=== PATIENT | male | born 1975 | race Caucasian/White ===

== ENCOUNTER 2017-12-18 14:12 | Emergency (ER) | payer BC ==
--- NOTE | 2017-12-18 14:32 | EDPHYS ---
Physician Documentation [facility] Name: Sunny Branham Age: 42 yrs Sex: Male : 1975 Arrival Date: 12/18/2017 Time: 14:14 Bed 17 Private MD: Mian Vivas V ED Physician Stone Zamarripa HPI: 12/18 14:28 This 42 yrs old Male presents to ER via Ambulatory with complaints of Back kb Pain. 14:28 The patient presents with pain that is acute, with no known mechanism of injury. The kb symptoms are located in the right scapular area. Onset: The symptoms/episode began/occurred 12 day(s) ago. The pain radiates to the right arm and neck. Associated signs and symptoms: The patient has no apparent associated signs or symptoms. The problem was sustained from unknown cause. Modifying factors: The patient symptoms are alleviated by nothing, the patient symptoms are aggravated by any movement. Severity of symptoms: At their worst the symptoms were moderate, in the emergency department the symptoms are unchanged. The patient has not experienced similar symptoms in the past. The patient has been recently seen at an urgent care, last week, for similar complaints, given steroids and muscle relaxant. Pt reports he has a pinched nerve. Was seen at Urgent Care and given steroids and muscle relaxant ("[id number]"). States he needs something for pain so he can sleep at night. Also reports the muscle relaxant has not helped at all. States his back doctor normally gives zanaflex. . Historical: - Allergies: 14:22 No Known Allergies; sv - Home Meds: 14:22 None [Active]; sv - PMHx: 14:22 None; sv - PSHx: 14:22 back; sv - Immunization history:: Flu vaccine is not up to date. - Social history:: Smoking status: Patient/guardian denies using tobacco, Patient/guardian denies using alcohol. - Ebola Screening: : No symptoms or risks identified at this time. ROS: 14:31 Constitutional: Negative for fever, chills, and weight loss, Cardiovascular: Negative kb for chest pain, palpitations, and edema, Respiratory: Negative for shortness of breath, cough, wheezing, and pleuritic chest pain, Abdomen/GI: Negative for abdominal pain, nausea, vomiting, diarrhea, and constipation, : Negative for injury, bleeding, discharge, and swelling, MS/Extremity: Negative for injury and deformity, Skin: Negative for injury, rash, and discoloration, Neuro: Negative for headache, weakness, numbness, tingling, and seizure. 14:31 Back: Positive for pain at rest, pain with movement, of the right scapular area. Exam: 14:31 Constitutional: This is a well developed, well nourished patient who is awake, alert, kb and in no acute distress. Head/Face: Normocephalic, atraumatic. Chest/axilla: Normal chest wall appearance and motion. Nontender with no deformity. No lesions are appreciated. Cardiovascular: Regular rate and rhythm with a normal S1 and S2. No gallops, murmurs, or rubs. Normal PMI, no JVD. No pulse deficits. Respiratory: Lungs have equal breath sounds bilaterally, clear to auscultation and percussion. No rales, rhonchi or wheezes noted. No increased work of breathing, no retractions or nasal flaring. Abdomen/GI: Soft, non-tender, with normal bowel sounds. No distension or tympany. No guarding or rebound. No evidence of tenderness throughout. Back: No spinal tenderness. No costovertebral tenderness. Full range of motion. Skin: Warm, dry with normal turgor. Normal color with no rashes, no lesions, and no evidence of cellulitis. MS/ Extremity: Pulses equal, no cyanosis. Neurovascular intact. Full, normal range of motion. Neuro: Awake and alert, GCS 15, oriented to person, place, time, and situation. Cranial nerves II-XII grossly intact. Motor strength 5/5 in all extremities. Sensory grossly intact. Cerebellar exam normal. Normal gait. Vital Signs: 14:15 BP 132 / 91; Pulse 71; Resp 16; Temp 97.7; Pulse Ox 98% ; Weight 99.79 kg; Height 6 ft. sv 0 in. (182.88 cm); Pain 8/10; 14:15 Body Mass Index 29.84 (99.79 kg, 182.88 cm) sv MDM: 14:21 Patient medically screened. kb 14:27 Data reviewed: vital signs, nurses notes. Data interpreted: Pulse oximetry: on room air kb is 98 %. Interpretation: normal. Counseling: I had a detailed discussion with the patient and/or guardian regarding: the historical points, exam findings, and any diagnostic results supporting the discharge/admit diagnosis, the need for outpatient follow up, a family practitioner, to return to the emergency department if symptoms worsen or persist or if there are any questions or concerns that arise at home. ED course: Pt has appt scheduled with his "back doctor". Administered Medications: No medications were administered Disposition: 12/19 06:51 Co-signature as Attending Physician, Stone Zamarripa MD I agree with the assessment and radha plan of care. Disposition: 12/18/17 14:32 Discharged to Home. Impression: Radiculopathy, cervicothoracic region. - Condition is Stable. - Discharge Instructions: Cervical Radiculopathy, [id number]. - Prescriptions for Zanaflex 4 mg Oral Tablet - take 1 tablet by ORAL route every 8 hours As needed; 21 tablet. Tramadol 50 mg Oral Tablet - take 1 tablet by ORAL route every 8 hours as needed; 12 tablet. - Medication Reconciliation Form, Thank You Letter, Antibiotic Education, Prescription Opioid Use form. - Follow up: Emergency Department; When: As needed; Reason: Worsening of condition. Follow up: Private Physician; When: 2 - 3 days; Reason: Recheck today's complaints, Continuance of care, Re-evaluation by your physician. Signatures: Rosemary Stock FNP-C FNP-Mamta Grace, RN Stone Dahl MD MD cha Reaves, Karey, RN RN kr2 Corrections: (The following items were deleted from the chart) 12/18 14:43 14:32 12/18/2017 14:32 Discharged to Home. Impression: Radiculopathy, cervicothoracic kr2 region. Condition is Stable. Forms are Medication Reconciliation Form, Thank You Letter, Antibiotic Education, Prescription Opioid Use. Follow up: Emergency Department; When: As needed; Reason: Worsening of condition. Follow up: Private Physician; When: 2 - 3 days; Reason: Recheck today's complaints, Continuance of care, Re-evaluation by your physician. kb
--- NOTE | 2017-12-18 14:32 | ER ---
Nurse's Notes [facility] Name: Sunny Branham Age: 42 yrs Sex: Male : 1975 Arrival Date: 12/18/2017 Time: 14:14 Bed 17 Private MD: Mian Vivas V Diagnosis: Radiculopathy, cervicothoracic region Presentation: 12/18 14:15 Presenting complaint: Patient states: right upper back/neck/shoulder/bicep pain started sv 12 days ago. Was seen at an Urgent Care and sent home with muscle relaxers on Saturday and has used a 30 day supply up. Transition of care: patient was not received from another setting of care. Onset of symptoms was December 06, 2017. Care prior to arrival: None. 14:15 Method Of Arrival: Ambulatory sv 14:15 Acuity: ANUSHKA 4 sv 14:20 Risk Assessment: Do you want to hurt yourself or someone else? Patient reports no kr2 desire to harm self or others. Initial Sepsis Screen: Does the patient meet any 2 criteria? No. Patient's initial sepsis screen is negative. Does the patient have a suspected source of infection? No. Patient's initial sepsis screen is negative. Triage Assessment: 14:22 General: Appears in no apparent distress. uncomfortable, Behavior is calm, cooperative, sv appropriate for age. Pain: Complains of pain in right trapezius, right scapular area, anterior aspect of left shoulder, left bicep and right posterior aspect of neck Pain currently is 8 out of 10 on a pain scale. Neuro: Level of Consciousness is awake, alert, obeys commands, Oriented to person, place, time, situation, Moves all extremities. Full function. Respiratory: Respiratory effort is even, unlabored, Respiratory pattern is regular, symmetrical. Historical: - Allergies: 14:22 No Known Allergies; sv - Home Meds: 14:22 None [Active]; sv - PMHx: 14:22 None; sv - PSHx: 14:22 back; sv - Immunization history:: Flu vaccine is not up to date. - Social history:: Smoking status: Patient/guardian denies using tobacco, Patient/guardian denies using alcohol. - Ebola Screening: : No symptoms or risks identified at this time. Screenin:20 Abuse screen: Denies threats or abuse. Denies injuries from another. Nutritional kr2 screening: No deficits noted. Tuberculosis screening: No symptoms or risk factors identified. Fall Risk None identified. Assessment: 14:20 General: Appears in no apparent distress. uncomfortable, well groomed, well developed, kr2 well nourished, Behavior is calm, cooperative, appropriate for age. Pain: Complains of pain in neck Pain radiates to right shoulder, right bicep and right upper back Pain currently is 8 out of 10 on a pain scale. Quality of pain is described as aching, Is continuous, Alleviated by nothing. Neuro: Level of Consciousness is awake, alert, obeys commands, Oriented to person, place, time, situation. Neuro: Education Site Manager are equal bilaterally Intact. Cardiovascular: Capillary refill < 3 seconds in bilateral fingers Patient's skin is warm and dry. Respiratory: Airway is patent Respiratory effort is even, unlabored, Respiratory pattern is regular, symmetrical. GI: Abdomen is flat, non-distended. Derm: Skin is intact, is healthy with good turgor, Skin is pink, warm \T\ dry. Musculoskeletal: Circulation, motion, and sensation intact. Vital Signs: 14:15 BP 132 / 91; Pulse 71; Resp 16; Temp 97.7; Pulse Ox 98% ; Weight 99.79 kg; Height 6 ft. sv 0 in. (182.88 cm); Pain 8/10; 14:15 Body Mass Index 29.84 (99.79 kg, 182.88 cm) sv ED Course: 14:14 Patient arrived in ED. mr 14:15 Mian Vivas MD is Private Physician. mr 14:15 Arm band placed on Patient placed in an exam room, on a stretcher, on pulse oximetry. sv 14:20 Patient has correct armband on for positive identification. Bed in low position. Call kr2 light in reach. Side rails up X 1. Pulse ox on. NIBP on. Door closed. Warm blanket given. Head of bed elevated. 14:21 [facility] kb 14:21 Stone Zamarripa MD is Attending Physician. kb 14:21 Triage completed. sv 14:40 No provider procedures requiring assistance completed. Patient did not have IV access kr2 during this emergency room visit. 14:43 Berenice Berger RN is Primary Nurse. kr2 Administered Medications: No medications were administered Outcome: 14:32 Discharge ordered by . kb 14:40 Discharged to home ambulatory. kr2 14:40 Condition: good 14:40 Discharge instructions given to patient, Instructed on discharge instructions, follow up and referral plans. medication usage, Demonstrated understanding of instructions, follow-up care, medications, Prescriptions given X 2. 14:43 Patient left the ED. kr2 Signatures: Rosemary Stock, MANIFOLD BUILDER-C MANIFOLD BUILDER-Mamta Grace RN RN sv Ashleigh Chung Berenice Berger RN RN kr2 Corrections: (The following items were deleted from the chart) 15:40 14:20 Pain: Complains of pain in neck Pain radiates to right posterior aspect of neck kr2 and right arm Pain currently is 8 out of 10 on a pain scale. Quality of pain is described as aching, Is continuous, Alleviated by nothing. kr2 15:43 15:41 Condition: good kr2 kr2 15:43 15:41 Discharged to home ambulatory, kr2 kr2 15:43 15:41 Discharge instructions given to patient, Instructed on discharge instructions, kr2 follow up and referral plans. medication usage, Demonstrated understanding of instructions, follow-up care, medications, Prescriptions given X 2, kr2
== END 2017-12-18 14:43 | disposition home or self-care (01) ==
LOC: ER 14:12
DX: M54.13 Radiculopathy, cervicothoracic region (principal)
CPT/HCPCS: 99283

== ENCOUNTER 2023-06-05 12:50 | Emergency (ER) | payer OTHER ==
[2023-06-05 14:07] LABS: SARS-CoV-2 Antigen CONTROL BLUE LINE VIS/BG OK; SARS-CoV-2 Antigen Rapid Res Negative (Negative)
--- NOTE | 2023-06-05 14:11 | RAD REPORT ---
EXAM DESCRIPTION: RAD - Chest Single View - 06/05/2023 1:46 pm CLINICAL HISTORY: COUGH Chest pain. COMPARISON: No comparisons FINDINGS: Portable technique limits examination quality. Peribronchial cuffing is present, greater on the right, suggests bronchitis or reactive airway diseas e. No consolidation seen to indicate bacterial pneumonia. The heart is normal in size. No displaced f ractures.
--- NOTE | 2023-06-05 14:22 | EDPHYS ---
Physician Documentation [facility] Name: Sunny Branham Age: 48 yrs Sex: Male : 1975 Arrival Date: 06/05/2023 Time: 12:50 Bed 9 Private MD: ED Physician Garry Garcia HPI: 06/04 13:45 This 48 yrs old Male presents to ER via Ambulatory with complaints of Flu Symptoms. sp3 13:45 48-year-old male with no significant past medical history presents with 3-day history sp3 of cough, congestion, body aches, subjective fever and mild headache. Possible sick contacts noted. Patient denies any chest pain, shortness of breath, abdominal pain, vomiting, diarrhea, rash, trauma, travel, or any other signs or symptoms on ROS at this time.. Historical: - Allergies: 12:58 No Known Allergies; ko1 - Home Meds: 12:58 None [Active]; ko1 - PMHx: 12:58 None; ko1 - PSHx: 12:58 None; ko1 - Immunization history:: Adult Immunizations up to date, Client reports receiving the 1st dose of the Covid vaccine, Client reports receiving the Reginaldo \T\ Reginaldo single-dose vaccine. Flu vaccine is not up to date. It has been more than one year since last vaccine. - Infectious Disease History:: Denies. - Social history:: Smoking status: Patient denies any tobacco usage or history of. ROS: 13:45 Eyes: Negative for injury, pain, redness, and discharge, Neck: Negative for injury, sp3 pain, and swelling, Cardiovascular: Negative for chest pain, palpitations, and edema, Abdomen/GI: Negative for abdominal pain, nausea, vomiting, diarrhea, and constipation, Back: Negative for injury and pain, MS/Extremity: Negative for injury and deformity, Skin: Negative for injury, rash, and discoloration, Neuro: Negative for headache, weakness, numbness, tingling, and seizure, Psych: Negative for depression, anxiety, suicide ideation, homicidal ideation, and hallucinations, Allergy/Immunology: Negative for hives, rash, and allergies, Endocrine: Negative for neck swelling, polydipsia, polyuria, polyphagia, and marked weight changes, Hematologic/Lymphatic: Negative for swollen nodes, abnormal bleeding, and unusual bruising, 13:45 All other systems are negative, Exam: 13:45 Constitutional: This is a well developed, well nourished patient who is awake, alert, sp3 and in no acute distress. Head/Face: Normocephalic, atraumatic. Eyes: Pupils equal round and reactive to light, extra-ocular motions intact. Lids and lashes normal. Conjunctiva and sclera are non-icteric and not injected. Cornea within normal limits. Periorbital areas with no swelling, redness, or edema. Neck: Trachea midline, no thyromegaly or masses palpated, and no cervical lymphadenopathy. Supple, full range of motion without nuchal rigidity, or vertebral point tenderness. No Meningismus. Chest/axilla: Normal chest wall appearance and motion. Nontender with no deformity. No lesions are appreciated. Cardiovascular: Regular rate and rhythm with a normal S1 and S2. No gallops, murmurs, or rubs. Normal PMI, no JVD. No pulse deficits. Abdomen/GI: Soft, non-tender, with normal bowel sounds. No distension or tympany. No guarding or rebound. No evidence of tenderness throughout. Back: No spinal tenderness. No costovertebral tenderness. Full range of motion. Skin: Warm, dry with normal turgor. Normal color with no rashes, no lesions, and no evidence of cellulitis. MS/ Extremity: Pulses equal, no cyanosis. Neurovascular intact. Full, normal range of motion. Neuro: Awake and alert, GCS 15, oriented to person, place, time, and situation. Cranial nerves II-XII grossly intact. Motor strength 5/5 in all extremities. Sensory grossly intact. Cerebellar exam normal. Normal gait. Psych: Awake, alert, with orientation to person, place and time. Behavior, mood, and affect are within normal limits. 13:45 ENT: Active mild cough otherwise no significant URI symptoms.. Vital Signs: 12:52 BP 110 / 67; Pulse 87; Resp 18; Temp 98; Pulse Ox 97% on R/A; ko1 14:15 BP 98 / 70; Pulse 78; Resp 18 S; Pulse Ox 100% on R/A; as6 MDM: 13:05 Patient medically screened. sp3 13:46 Data reviewed: vital signs, nurses notes, lab test result(s), radiologic studies. ED sp3 course: 48-year-old male with URI symptoms. Consider influenza versus other viral syndrome versus COVID-19 versus strep throat versus bronchitis versus pneumonia. Workup will include chest x-ray and swabs and disposition accordingly.. 14:21 ED course: Peribronchial cuffing noted on x-ray consistent with bronchitis. We will sp3 place patient on an inhaler, Tessalon, Zithromax and have him follow-up with PCP.. 06/04 13:06 Order name: Flu; Complete Time: 14:17 sp3 06/04 13:06 Order name: Strep sp3 06/04 13:06 Order name: SARS RAPID; Complete Time: 14:17 sp3 06/04 13:55 Order name: Throat Culture EDMS 06/04 13:06 Order name: CXR XRAY; Complete Time: 14:17 sp3 Administered Medications: 14:37 Drug: HYDROmorphone IM 1 mg IM once Route: IM; Site: right deltoid; as6 14:45 Follow up: Response: No adverse reaction as6 Disposition Summary: 06/05/23 14:22 Discharge Ordered Notes: Location: Home sp3 Condition: Stable sp3 Diagnosis - Acute bronchitis, unspecified sp3 Followup: sp3 - With: Private Physician - When: Upon discharge from the Emergency Department - Reason: Continuance of care Discharge Instructions: - Discharge Summary Sheet sp3 - Acute Bronchitis, Adult sp3 Forms: - Medication Reconciliation Form sp3 - Thank You Letter sp3 - Antibiotic Education sp3 - Prescription Opioid Use sp3 - Patient Portal Instructions sp3 - Leadership Thank You Letter sp3 Prescriptions: - Ventolin HFA 90 mcg/actuation Inhalation HFA Aerosol Inhaler - inhale 1 puff INHALATION route every 4 to 6 hours as needed for bronchospasm; sp3 administer via ventilator; 1 Applicator; Refills: 0, Product Selection Permitted - Tessalon Perles 100 mg Oral Capsule - take 1 capsule ORAL route every 8 hours As needed; 15 capsule; Refills: 0, sp3 Product Selection Permitted - Zithromax Z-Emmanuel 250 mg Oral Tablet - take 1 tablet ORAL route as directed for 5 days Day 1 - take two (2) tablets sp3 one time. Day 2, 3, 4 , 5 take one (1) tablet once daily.; 6 tablet; Refills: 0, Product Selection Permitted - Prednisone 20 mg Oral Tablet - take 2 tablets ORAL route once daily for 5 days; 10 tablet; Refills: 0, Product sp3 Selection Permitted Signatures: Dispatcher [employer] Garry Serrano MD MD sp3 Rian Pepe RN RN as6 Sonia Adamson RN RN ko1
--- NOTE | 2023-06-05 14:22 | ER ---
Nurse's Notes [facility] Name: Sunny Branham Age: 48 yrs Sex: Male : 1975 Arrival Date: 06/05/2023 Time: 12:50 Bed 9 Private MD: Diagnosis: Acute bronchitis, unspecified Presentation: 06/04 12:52 Chief complaint: Patient states: Saturday started feeling bad, headache, little warm, ko1 short of breath. Took motrin for body aches. Coronavirus screen: chills, cough unrelated to allergies, fatigue, fever, headache, muscle pain, shaking with chills, shortness of breath, sore throat, Client presents with at least one sign or symptom that may indicate coronavirus-19. Standard/surgical mask placed on the client. Ebola Screen: No symptoms or risks identified at this time. Initial Sepsis Screen: Does the patient meet any 2 criteria? No. Patient's initial sepsis screen is negative. Does the patient have a suspected source of infection? No. Patient's initial sepsis screen is negative. Risk Assessment: Do you want to hurt yourself or someone else? Patient reports no desire to harm self or others. Onset of symptoms was June 05, 2023. Care prior to arrival: Medication(s) given: Motrin, 800 mg. 12:52 Method Of Arrival: Ambulatory ko1 12:52 Acuity: ANUSHKA 4 ko1 Triage Assessment: 12:58 General: Appears in no apparent distress. Behavior is calm, cooperative, appropriate ko1 for age. Pain: Complains of pain in generalized body aches. Historical: - Allergies: 12:58 No Known Allergies; ko1 - Home Meds: 12:58 None [Active]; ko1 - PMHx: 12:58 None; ko1 - PSHx: 12:58 None; ko1 - Immunization history:: Adult Immunizations up to date, Client reports receiving the 1st dose of the Covid vaccine, Client reports receiving the Reginaldo \T\ Reginaldo single-dose vaccine. Flu vaccine is not up to date. It has been more than one year since last vaccine. - Infectious Disease History:: Denies. - Social history:: Smoking status: Patient denies any tobacco usage or history of. Screenin:18 [facility] ED Fall Risk Assessment (Adult) History of falling in the last 3 months, as6 including since admission No falls in past 3 months (0 pts) Confusion or Disorientation No (0 pts) Intoxicated or Sedated No (0 pts) Impaired Gait No (0 pts) Mobility Assist Device Used No (0 pt) Altered Elimination No (0 pt) Score/Fall Risk Level 0 - 2 = Low Risk Oriented to surroundings, Maintained a safe environment, Educated pt \T\ family on fall prevention, incl call for assistance when getting out of bed, Assessed \T\ reinforced patient's understanding of fall precautions. Abuse screen: Denies threats or abuse. Denies injuries from another. Nutritional screening: No deficits noted. Tuberculosis screening: No symptoms or risk factors identified. Assessment: 13:17 General: Appears in no apparent distress. comfortable, Behavior is calm, cooperative, as6 Reports chills for fever for feeling ill for fatigue for. Pain: Complains of pain in head, generalized Quality of pain is described as aching. Neuro: Level of Consciousness is awake, alert, obeys commands, Oriented to person, place, time, situation, Reports headache. Cardiovascular: Capillary refill < 3 seconds Patient's skin is warm and dry. Respiratory: Reports shortness of breath cough that is persistent Airway is patent Trachea midline Respiratory effort is even, unlabored, Respiratory pattern is regular, symmetrical. GI: Reports nausea. : No deficits noted. No signs and/or symptoms were reported regarding the genitourinary system. EENT: Reports nasal congestion. Derm: Skin is intact, is healthy with good turgor. Musculoskeletal: Circulation, motion, and sensation intact. 14:15 Reassessment: Patient appears in no apparent distress at this time. Patient and/or as6 family updated on plan of care and expected duration. Pain level reassessed. Patient is alert, oriented x 3, equal unlabored respirations, skin warm/dry/pink. Vital Signs: 12:52 BP 110 / 67; Pulse 87; Resp 18; Temp 98; Pulse Ox 97% on R/A; ko1 14:15 BP 98 / 70; Pulse 78; Resp 18 S; Pulse Ox 100% on R/A; as6 ED Course: 12:52 Patient arrived in ED. mg5 12:52 Garry Garcia MD is Attending Physician. sp3 12:58 Triage completed. ko1 12:58 Arm band placed on right wrist. Patient placed in an exam room, on a stretcher, on ko1 pulse oximetry, Patient notified of wait time. 13:09 Rian Pepe, RN is Primary Nurse. as6 13:14 Flu Sent. as6 13:14 Strep Sent. as6 13:14 SARS RAPID Sent. as6 13:19 Bed in low position. Call light in reach. Warm blanket given. as6 13:48 CXR XRAY In Process Unspecified. EDMS 14:42 No provider procedures requiring assistance completed. Patient did not have IV access as6 during this emergency room visit. 14:45 Provided Education on: rx teaching . as6 Administered Medications: 14:37 Drug: HYDROmorphone IM 1 mg IM once Route: IM; Site: right deltoid; as6 14:45 Follow up: Response: No adverse reaction as6 Medication: 13:19 VIS not applicable for this client. as6 Outcome: 14:22 Discharge ordered by . sp3 14:43 Discharged to home ambulatory, as6 14:43 Condition: stable 14:45 Discharge instructions given to patient, Instructed on discharge instructions, follow as6 up and referral plans. medication usage, Demonstrated understanding of instructions, follow-up care, medications, Prescriptions given X 4, 14:48 Patient left the ED. as6 Signatures: Dispatcher [employer] EDMS Garry Garcia MD MD sp3 Rian Pepe, RN RN as6 Sonia Adamson, MART RN ko1 Chanelle Streeter mg5
[2023-06-05] MEDS ORDERED: HYDROMORPHONE HCL 1 MG/ML INJ ONE (14:36)
[2023-06-05 22:10] VITALS: BP 98/70; TEMP 98; O2SAT 100
== END 2023-06-05 14:48 | disposition home or self-care (01) ==
LOC: ER 12:50
DX: J20.9 Acute bronchitis, unspecified (principal); Z11.52 Encounter for screening for COVID-19
CPT/HCPCS: 87070; 36415; 87081; 87804 ×2; 71045; 87811; J1170